=== PATIENT | female | born 1985 ===

== ENCOUNTER 2020-04-07 12:58 | Inpatient (IN) | payer SELFPAY ==
[2020-04-07 13:30] VITALS: BMI 34.9
--- NOTE | 2020-04-07 14:02 | PDOC.FPROB ---
FMR OB H&P: HPI - History of Present Illness Chief Complaint: Oligohydramnios Indentification: at 37.5 wks History of Present Illness: Pt is a 34 yo at 37.5 wks dated by 27.5 wk lisa, MUNIR 04/23/20, who was instructed to be seen after oligohydramnios was noted on an U/S performed by Dr. Duque. OB hx included A2GDM, AMA, food insecurity, Anemia of , Late to Care/Poor Dating. She was noted to have an RASHAAD < 5, deepest pocket < 2. She was also noted to have a SBP 140's at the clinic. She denies any complaints including JANG, vision changes, abdominal pain, chest pain, SOB, N/V, dysuria, hematuria, LOF, vaginal bleeding, vaginal discharge. She states her BG run 75- 120, she checks daily. Pt is noted to have poor follow up as well. She has hx of asthma. Her anatomy U/S by MFM revealed a hadlock of 36% on 02/24/20. RASHAAD on 03/31 was 9.26, reactive NST, noted anterior placenta. Primary Care Physician: EDGARD Kelly FMR OB H&P: Current - Care : 6 Para: [id number] Gestational age: 37w5d Due date: 04/23/20 Dating Criteria: 27.5w US - OB Labs Blood type: O RH: positive Antibody Screen: negative HIV: negative RPR: negative HepBsAg: negative Rubella: immune Urine drug screen: not done Gonorrhea: negative Chlamydia: negative Pap Smear: NILM, HPV neg 02/19/20 A1c: 6.0 GBS: negative H&H: 3T- 9.9/29.3 - Anatomy Survey Anatomy survey: Normal anatomic survey although limited view d/t late gestation and maternal body habitus FMR OB H&P: History - Past Medical History PMH: Asthma - OB History OB History: x4, no complications 1 spontaneous AB at 6wk - [employer] History [employer] History: Non-contributory - Surgical History Sx History: none - Social History Social History: denies tobacco, drug, alcohol use; states she has access to food at home - Family History Family History: non-contributory FMR OB H&P: Medications - Current Home Medications: Medication Instructions Recorded Confirmed Type RX: Albuterol Sulfate HFA (OR) 2 inhaler IH DAILY 04/07/20 04/07/20 History [Proventil Hfa (or)] RX: Montelukast Sodium [Singulair] 1 tablet PO DAILY 04/07/20 04/07/20 History RX: Vitamin 1 tablet PO DAILY 04/07/20 04/07/20 History RX: metFORMIN [Glucophage] 500 mg PO BID 04/07/20 04/07/20 History Allergies/Adverse Reactions: Allergies Allergy/AdvReac Type Severity Reaction Status Date / Time No Known Allergies Allergy Unverified 04/07/20 13:13 FMR OB H&P: ROS - Review of Systems General: denies: fever/chills, weight/appetite/sleep changes ENT: denies: nasal congestion, rhinorrhea, sinus pain/pressure Cardiovascular: reports: edema. denies: chest pain, palpitation Respiratory: denies: cough, congestion Gastrointestinal: denies: abdominal pain, indigestion, cramping, nausea, vomiting, diarrhea, constipation Genitourinary (Female): denies: incontinence, dysuria, hematuria Musculoskeletal: denies: pain, stiffness Neurologic: denies: numbness, syncope, weakness Integumentary: denies: itching, hair changes Endocrine: denies: cold intolerance, polydipsia Hematologic/Lymphatic: denies: prolonged or excessive bleeding Psychological: denies: depression, anxiety FMR OB H&P: Vital Signs - Maternal Vital signs: 125/61, p 70, 99% RA - Heart Tones Baseline: 140 Variability: moderate Acceleration: present Deceleration: absent [place] contractions every: none FMR OB H&P: Physical Exam - Physical Exam General: NAD, awake, alert and oriented HEENT: PERRLA, EOMI Neck: FROM, no JVD Heart: RRR, normal S1/S2, no edema General: CTAB, no respiratory distress, no wheezing Abdomen: soft, gravid, non-tender, bowel sound present Musculoskeletal: pulses present, FROM in all four extremities Neurological: cranial nerves II through XII intact, sensation to pain,touch and proprioception grossly normal Skin: no rash, capillary refill <2 seconds Lymphatic: no purpura, no petechia Psychiatric: intact recent and remote memory, good judgement and insight FMR OB H&P: A/P - Problem List (1) Gestational diabetes Current Visit: Yes Status: Acute Code(s): O24.419 - GESTATIONAL DIABETES MELLITUS IN , UNSP CONTROL (2) Asthma affecting in third trimester Current Visit: Yes Status: Acute Code(s): O99.513 - DISEASES OF THE RESP SYS COMP , THIRD TRIMESTER; J45.909 - UNSPECIFIED ASTHMA, UNCOMPLICATED (3) Intrauterine Current Visit: Yes Status: Acute Code(s): Z34.90 - ENCNTR FOR SUPRVSN OF NORMAL , UNSP, UNSP TRIMESTER (4) Anemia affecting in third trimester Current Visit: Yes Status: Acute Code(s): O99.013 - ANEMIA COMPLICATING , THIRD TRIMESTER (5) Late care Current Visit: Yes Status: Acute Code(s): O09.30 - SUPRVSN OF PREG W INSUFFICIENT ANTENAT CARE, UNSP TRIMESTER (6) AMA (advanced maternal age) multigravida 35+ Current Visit: Yes Status: Acute Code(s): O09.529 - SUPERVISION OF ELDERLY MULTIGRAVIDA, UNSPECIFIED TRIMESTER (7) Grand multiparity Current Visit: Yes Status: Acute Code(s): Z64.1 - PROBLEMS RELATED TO MULTIPARITY Disposition: Pt is a 34 yo at 37.5 wks dated by 27.5 wk lisa, MUNIR 04/23/20, who presents from clinic with oligohydramnios noted on U/S: # Term IUP, Grand Multiparity Due to pt's history of A2GDM, AMA, poor follow up, and most specifically oligohydramnios will admit pt for induction of labor. Pt is medically indicated for early term delivery due to oligohydramnios. She is late to care, suboptimally dated withU/S > 22wks placing pt's dates +/- 3 weeks. Even with dating recommendation for oligo is delivery > 34 wks. Benefits outweight risks. - type and cross 2 U # Oligohydramnios - pending EFW via U/S. If weight is > 4500 g will deliver via and if < 4500 g will begin with induction of labor. - Cervical check if advancing with induction of labor then will decide medication for induction # A2GDM - BG now - BG if > 120 notify physician team # AMA # Anemia of 9.9 Hgb on 03/31/20 - cbc pending - type and cross 2 U # Suboptimally dated # GBS Negative # PNC noted Food Insecurity at home - Case management on discharge # Asthma - no hemabate if pt has PPH. She does have multiple risk factors. Dispo: admit to floor for induction of labor vs Discussion: Date/Time: 04/07/20 1402 This H&P was discussed with Dr. Reed and Dr. Shafer who agree with the above documentation and plan.
[2020-04-07] MEDS ORDERED: Lidocaine 1% (PF) 30 ML VIAL SC PRN (14:21)
[2020-04-07] MEDS ORDERED: hydrALAZINE 20 MG/ML VIAL SLOW IVP PRN (14:21)
[2020-04-07] MEDS ORDERED: Ondansetron PF 4 MG/2 ML Vial IVP PRN (14:21)
[2020-04-07] MEDS ORDERED: Misoprostol 200 MCG TAB PR PRN (14:21)
[2020-04-07] MEDS ORDERED: Methylergonovine 0.2 MG/ML VIAL IM PRN (14:21)
[2020-04-07] MEDS ORDERED: HYDROcodone/Acetaminophen 5/325 mg Tablet PO PRN ×2 (14:21)
[2020-04-07] MEDS ORDERED: Carboprost 250 MCG/ML AMP IM PRN (14:21)
[2020-04-07] MEDS ORDERED: Acetaminophen 500 MG TAB PO PRN (14:21)
[2020-04-07] MEDS ORDERED: Ibuprofen 800 MG TAB PO PRN (14:21)
[2020-04-07] MEDS ORDERED: Promethazine HCl 25 MG/ML VIAL IM PRN (14:21)
[2020-04-07] MEDS ORDERED: NS / Oxytocin 40 units/1000ml 1,000 ML IV PRN (14:21)
[2020-04-07] MEDS: Lactated Ringer's 1,000 ML IV SCH ×2 (14:30→20:42)
[2020-04-07 14:45] LABS: Hemoglobin 10.7 g/dL (12.0-16.0); Mean Corpuscular HGB CONC 32.6 g/dL (32.0-36.0); Mean Corpuscular Hemoglobin 25.2 pg (27.0-31.0); Mean Corpuscular Volume 77.5 fL (78.0-98.0); Mean Platelet Volume 9.3 fL (7.4-10.4); Platelet Count 230 thou/uL (130-400); RBC Distribution Width 12.8 % (11.5-14.5); Red Blood Cell (RBC) Count 4.23 mill/uL (4.20-5.40)
[2020-04-07] MEDS ORDERED: Dextrose 50% Abboject 50 ML SYRINGE SLOW IVP PRN (14:49)
[2020-04-07] MEDS ORDERED: Dextrose 5% in Water 1,000 ML IV PRN (14:49)
[2020-04-07 15:10] LABS: #Eosinphils 0.1 thou/uL (0.0-0.7); #Lymphocytes 2.5 thou/uL (1.20-3.40); #Monocytes 0.3 thou/uL (0.11-0.59); #Neutrophils 3.4 thou/uL (1.40-6.50); %Basophils 0.1 % (0.0-1.0); %Eosinophils 1.2 % (0.0-10.0); %Lymphocytes 40.2 % (21.0-51.0); %Monocytes 4.7 % (0.0-10.0); %Neutrophils 53.7 % (42.0-75.0); Hemoglobin 10.7 g/dL (12.0-16.0); Mean Corpuscular HGB CONC 32.7 g/dL (32.0-36.0); Mean Corpuscular Hemoglobin 25.4 pg (27.0-31.0); Mean Corpuscular Volume 77.5 fL (78.0-98.0); Mean Platelet Volume 9.2 fL (7.4-10.4); Platelet Count 224 thou/uL (130-400); RBC Distribution Width 12.6 % (11.5-14.5); Red Blood Cell (RBC) Count 4.22 mill/uL (4.20-5.40); White Blood Cell (WBC) Count 6.3 thou/uL (4.8-10.8)
[2020-04-07 15:25] LABS: HBSAg Index 0.18 S/CO (0-0.99); Hep B Surf Ag Non-Reactive S/CO (NonReactive); Syphilis Antibody Nonreactive (Nonreactive); Syphilis Antibody Index 0.04 S/CO (<1.00 Non-Reactive)
--- NOTE | 2020-04-07 15:27 | HP ---
TIME OF EVALUATION: Roughly 1430, until 1445. LOCATION: [facility], bed 2. This is a patient of the clinic and this patient was first evaluated by Dr. Olayinka Knowles. I have evaluated the patient along with Dr. Knowles at bedside and have communicated our plan to the patient in [place]. REASON FOR EVALUATION: The patient was sent from the clinic after her antepartum surveillance test revealed a largest pocket less than 2 cm with a total RASHAAD of less than 5 cm. HISTORY OF PRESENT ILLNESS: This is a 34-year-old , G6, P4, SAB1 at the age of 15, who has had 4 previous deliveries, but the last delivery was in 2004 and that child was 9 pounds. There was no complications with that delivery by her report. She has a due date of April 23, placing her at 37 weeks and 5 days, although she presented late to care. She was sent by the clinic for possible induction/evaluation for amniotic fluid less than 2 cm as the largest pocket without a history of ruptured membranes. PAST MEDICAL HISTORY: Significant for asthma. She takes Singulair and albuterol MDI. PAST SURGICAL HISTORY: Includes her D and C with her miscarriage at age 15. ALLERGIES: NONE. SOCIAL HISTORY: Negative for alcohol, tobacco, or drug use. MEDICATIONS: Include metformin and vitamin. PHYSICAL EXAMINATION: VITAL SIGNS: Blood pressure is normal on arrival at 125/61, pulse is in the 80s and she is afebrile and respirations are 18 and not labored. GENERAL: She is in no acute distress. ABDOMEN: Soft and nontender. heart tones are in the 140s. They are reactive with moderate variability, acceleration and no deceleration. There are no contractions on tocodynamometer. INTERVENTIONS ORDERED: I have ordered an ultrasound due to her gestational diabetes history. I am making sure that the estimated weight is not above 4250 g before we proceed with induction of labor. ASSESSMENT: This is an advanced maternal age patient at 34 years of age, who is a G6, P4 with A2 diabetes and spotty care, who was diagnosed with oligohydramnios by largest pocket ultrasound. She was sent here for possible induction of labor. PLAN: 1. This is a suboptimally dated according to ACOG. Nonetheless, her oligohydramnios and A2 diabetes increases the morbidity making induction of labor medically necessary. I have opted to not give her steroids due to her A2 diabetes and she would be late anyway even if the 37.5 weeks is off. 2. Diabetes mellitus. Due to her previous history of macrosomia (9 pounds baby ) and her current diabetes status, I have elected to get an estimated weight to make sure that we are not inducing a potential macrosomic child. With her diabetes, the ACOG does recommend consideration of at 4250 g or 4500 g. I have discussed this with the patient. 3. If the ultrasound shows the baby in a cephalic presentation, which I was told that it was from the clinic, and the weight is appropriate, we may proceed with a trial of induction. 4. Plan discussed with Olayinka Knowles. Job ID: [id number] MTDD
--- NOTE | 2020-04-07 15:44 | ULT ---
EXAM: OB ultrasound COMPARISON: None HISTORY: Gestational diabetes, decreased amniotic fluid index noted at physician's clinic. TECHNIQUE: Multiplanar grayscale and color Doppler transabdominal sonographic images are obtained. FINDINGS: There is a single intrauterine gestation in cephalic presentation. Cardiac Doppler demonstr ates heart tones with a heart rate of 169 beats per minute. The placenta is located anterior and fundal without evidence of placenta previa. The amniotic fluid index is decreased with a n amniotic fluid index of 3.9 cm cervix is mostly obscured on this exam and not well evaluated. biometry measurements: BPD 9.27 cm -- 37 weeks 5 days HC 33.1 cm -- 37 weeks 5 days AC 31.76 cm -- 35 weeks 5 days FL 7.43 cm -- 38 weeks The estimated gestational age by ultrasound is 37 weeks 3 days with an MUNIR on04/25/2020. Gestational ag e by the last menstrual period is 37 weeks 5 days. The estimated weight by ultrasound is 3017 g (6 pounds, 10 ounces). This represents 35 percenti le for weight. This examination was not performed for evaluation of the anatomical structures. IMPRESSION: 1. Oligohydramnios with amniotic fluid index of 3.9 cm. 2. Single intrauterine gestation in cephalic presentation with heart tones documented. Estimat ed gestational age by ultrasound is 37 weeks 3 days. 3. Estimated weight is 3017 g (6 pounds, 10 ounces). 4. Dr. Knowles was present during this examination and is aware of the decreased amniotic fluid index /oligohydramnios.
--- NOTE | 2020-04-07 16:16 | PRG ---
DATE OF SERVICE: 04/07/2020 SONOGRAM: In brief, this is a patient of clinic, who was sent for suspected oligo at the clinic and she also has A2 diabetes. Her ultrasound was done and it shows that the weight is about 3000 g or about 3 kg and the baby is in a cephalic presentation. The largest pocket was around 2.5 cm or so, but the overall RASHAAD was about 4. But of note, is that the resident, who was in the room for the ultrasound reported back to me that the placenta was calcified and this is a concern. I have discussed these findings with the patient along with Dr. Knowles, who was at bedside. Our nurse was also in attendance for discussion. Although the largest pocket was normal, her A2 diabetes, advanced maternal age, and calcified placenta raise a concern for placental aging. As there was already a concern for a "low RASHAAD," I have discussed with her that the plan would still be an induction of labor, although her cervix is only fingertip , about 10% effaced, -3 station. I feel uncomfortable sending the patient home with these ultrasound findings and I would prefer to do a trial of induction for delivery. I have discussed with the patient that if the induction fails and/or the baby does not tolerate the process, she may require a , and she is aware of this possibility. Job ID: [id number] MTDD
--- NOTE | 2020-04-07 16:25 | PDOC.LDPN ---
Labor & Delivery Progress Note - Subjective Subjective: comfortable, no concerns - Objective Vital signs reviewed and normal: yes General: NAD, resting SVE: 1/0/-3 - Assessment (1) Gestational diabetes Code(s): O24.419 - GESTATIONAL DIABETES MELLITUS IN , UNSP CONTROL Current Visit: Yes Status: Acute (2) Asthma affecting in third trimester Code(s): O99.513 - DISEASES OF THE RESP SYS COMP , THIRD TRIMESTER; J45.909 - UNSPECIFIED ASTHMA, UNCOMPLICATED Current Visit: Yes Status: Acute (3) Intrauterine Code(s): Z34.90 - ENCNTR FOR SUPRVSN OF NORMAL , UNSP, UNSP TRIMESTER Current Visit: Yes Status: Acute (4) Anemia affecting in third trimester Code(s): O99.013 - ANEMIA COMPLICATING , THIRD TRIMESTER Current Visit: Yes Status: Acute (5) Late care Code(s): O09.30 - SUPRVSN OF PREG W INSUFFICIENT ANTENAT CARE, UNSP TRIMESTER Current Visit: Yes Status: Acute (6) AMA (advanced maternal age) multigravida 35+ Code(s): O09.529 - SUPERVISION OF ELDERLY MULTIGRAVIDA, UNSPECIFIED TRIMESTER Current Visit: Yes Status: Acute (7) Grand multiparity Code(s): Z64.1 - PROBLEMS RELATED TO MULTIPARITY Current Visit: Yes Status: Acute -: Pt is a complex, interesting pt. She is suboptimally dated at 37.5 wks. She was originally noted to have an RASHAAD < 5, deepest pocked < 2. But on repeat U/S she was noted to have a deepest pocket of 2.8, RASHAAD 3.9, and a placental grade 2. Although she does not have oligohydramnios based on her deepest pocket, she does have multiple concerning risks including a grade 2 placenta, A2GDM. She also a decrease in RASHAAD last week, ~9, to < 4 this week. It is uncertain if pt will continue to have reduced RASHAAD in the setting of A2GDM, grade 2 placenta or if pt could have a bad outcome from reduced fluid. The benefits of delivery outweigh the risk of a bad outcome with her presentation. Will keep for trial of labor. Pt on check is 1/thick/high. - start cytotec induction for trial of labor - feed pt before induction - continue with q2h glucose, space out if BG is WNL after the few couple of checks Olayinka Knowles,
[2020-04-07] MEDS ORDERED: Misoprostol 200 MCG TAB ONE (17:35)
--- NOTE | 2020-04-07 19:31 | PDOC.LDPN ---
Labor & Delivery Progress Note - Subjective Subjective: comfortable - Objective Vital signs reviewed and normal: yes General: NAD, resting Uterine fundus: non tender SVE: 18:00 by nurse Dilation: 1 Effacement: 50% Station: -3 FHT: category 1, variability present [place] contractions every: q3-5 - Assessment (1) AMA (advanced maternal age) multigravida 35+ Code(s): O09.529 - SUPERVISION OF ELDERLY MULTIGRAVIDA, UNSPECIFIED TRIMESTER Current Visit: Yes Status: Acute (2) Anemia affecting in third trimester Code(s): O99.013 - ANEMIA COMPLICATING , THIRD TRIMESTER Current Visit: Yes Status: Acute (3) Asthma affecting in third trimester Code(s): O99.513 - DISEASES OF THE RESP SYS COMP , THIRD TRIMESTER; J45.909 - UNSPECIFIED ASTHMA, UNCOMPLICATED Current Visit: Yes Status: Acute (4) Gestational diabetes Code(s): O24.419 - GESTATIONAL DIABETES MELLITUS IN , UNSP CONTROL Current Visit: Yes Status: Acute (5) Grand multiparity Code(s): Z64.1 - PROBLEMS RELATED TO MULTIPARITY Current Visit: Yes Status: Acute (6) Intrauterine Code(s): Z34.90 - ENCNTR FOR SUPRVSN OF NORMAL , UNSP, UNSP TRIMESTER Current Visit: Yes Status: Acute (7) Late care Code(s): O09.30 - SUPRVSN OF PREG W INSUFFICIENT ANTENAT CARE, UNSP TRIMESTER Current Visit: Yes Status: Acute Plan: continue plan of care -: Patient fingertip/50/high at appx 18:00 at which time cytotec was placed. Strip reviewed at 19:30 and category I. Contractions q2-5 minutes. Will recheck in [address] additional cytotec if necessary at that time. BG on presentation 81. She ate approximately 2 hours ago. Will recheck BG in 1 hour. If BG <120 q2h for first several BG checks, then will space out to q4h. Patient' s BP's have been very well controlled in low 100's systolic. Patient doing well.
--- NOTE | 2020-04-07 21:41 | PDOC.LDPN ---
Labor & Delivery Progress Note - Subjective Subjective: comfortable, vaginal pressure - Objective Abnormal vital signs: One BP 143/81 General: NAD, resting SVE: 0.5/thick/high FHT: category 1 [place] contractions every: 2-4 Plan: continue plan of care, labor augmentation -: Patient is a 34F @ 37.5wga by 27wk sono that is having an IOL for low RASHAAD Patient doing well, resting comfortably. She is feeling some pressure, but not really feeling contractions. Patient has had BG 81,86. If next few BG q2h are <120, can space accuchecks to q4h Patient had one BP of 143/81 and 2 in clinic, so will get pre-e labs at this time. SVE 0.5/thick/high @ 2135, ctx q2-4, cat 1 strip. Second cytotec placed. Will follow pre-e labs, continue to monitor bp, and continue q3-4hr cervical checks.
[2020-04-07] MEDS: Misoprostol 100 MCG TAB VAG SCH (21:50)
[2020-04-07 22:50] LABS: ALT (SGPT) 8 U/L (8-55); AST (SGOT) 13 U/L (5-34); Albumin 3.2 g/dL (3.5-5.0); Alkaline Phosphatase 212 U/L (40-110); Anion Gap 13 mmol/L (10-20); BUN (Urea Nitrogen) 7 mg/dL (7.0-18.7); Bilirubin, Total 0.4 mg/dL (0.2-1.2); Calc. Creatinine Clearance 175 mL/min (70-130); Calcium 8.3 mg/dL (7.8-10.44); Carbon Dioxide 21 mmol/L (22-29); Chloride 106 mmol/L (98-107); Estimated GFR-MDRD Greater than 90; Globulin 3.4 g/dL (2.4-3.5); Glucose 77 mg/dL (70-105); Potassium 3.9 mmol/L (3.5-5.1); Protein, Total 6.6 g/dL (6.0-8.3); Sodium 136 mmol/L (136-145)
--- NOTE | 2020-04-07 22:51 | PDOC.EVN ---
Event Note - Event Note Event Note: Reviewed POC with Dr Orellana just now. IOL indication reviewed as Oligo and A2DM, 37 weeks. One BP elevation noted...labs ordered. Cytotec in use
[2020-04-07 22:53] LABS: Creatinine, Urine 54.25 mg/dL (47-110)
[2020-04-08 00:22] LABS: Protein, Urine Random Quant Less than 10 mg/dL (1-14)
--- NOTE | 2020-04-08 00:45 | PDOC.LDPN ---
Labor & Delivery Progress Note - Subjective Subjective: comfortable - Objective Abnormal vital signs: One BP 146/64 since last check, no severe range pressures General: NAD, resting SVE: 350/-3 FHT: category 1, variability present [place] contractions every: 2-4 Plan: continue plan of care, labor augmentation -: Patient is a 34F @ 37.6wga by 27wk sono that is having an IOL for low RASHAAD Patient doing well, resting comfortably. She is feeling some pressure, small amount of pain with contractions, tolerable. Patient has had BG 81,86, 79. Will space accuchecks to q4h Patient had one BP of 146/64 since last check; pre-e labs negative at this time. Will continue to monitor BP. SVE /-3 @ 0050, ctx q2-4, cat 1 strip. Will score of 4. Third cytotec to be placed. Will continue to monitor bp, continue q4h accuchecks, and continue q3-4hr cervical checks.
[2020-04-08] MEDS ORDERED: NS w/ Oxytocin 10 units 500 ML IV SCH (01:15)
--- NOTE | 2020-04-08 01:15 | PDOC.BPN ---
- Brief Progress Note Patient with likely SROM at 1:15 AM. Will start pitocin for continued augmentation. Will recheck in 3-4 hours. Michelle Orellana, DO PGY-3
--- NOTE | 2020-04-08 03:59 | PDOC.LDPN ---
Labor & Delivery Progress Note - Subjective Subjective: comfortable - Objective Abnormal vital signs: 4 BP with systolic >140 General: NAD, resting Uterine fundus: non tender SVE: 3/50/-3 FHT: category 1 [place] contractions every: 2-4 Plan: continue plan of care, pitocin for augmentation -: Patient is a 34F @ 37.6wga by 27wk sono that is having an IOL for low RASHAAD Patient doing well, resting comfortably. She continues to feel some pressure, small amount of pain with contractions, tolerable. Patient has had BG 81,86, 79. Accuchecks to q4h Patient had 4 BP with systolic >140 since last check; pre-e labs negative at this time, no severe range pressures. Will continue to monitor BP. Patient likely has gHTN. SVE 3/50/-3 @ 0050, ctx q2-4, cat 1 strip. Will score of 4. SROM shortly after check, so pitocin was started instead of cytotec. SVE 3/50/-3 @ 0350, ctx q2-4, cat 1 strip. Pitocin at 8. Will continue to monitor bp, continue q4h accuchecks, and continue q3-4hr cervical checks. OBGYN: Case and progressed reviewed. Agree with plan.
--- NOTE | 2020-04-08 05:21 | PDOC.EVN ---
Event Note - Event Note Event Note: OBGERALDINEN: Patent now 3cm and s/p SROM. Pitocin in use. Continue course.
--- NOTE | 2020-04-08 06:59 | PDOC.BPN ---
- Brief Progress Note Notified by nursing staff that patient had half dollar size clot. Went to evaluate and clot visualized in bed. Patient with painful contractions q2 min. Category I strip. SVE /-3, bag did feel intact (this was my first time checking patient). No distress. No significant bleeding noted during cervical exam. Will stay the course and continue with labor augmentation. Monitor closely. Dr. Shafer and incoming team notified. Of note, one elevated BP in severe range during cervical exam. Repeated immediately after exam and not in severe range. Will need to monitor closely.
--- NOTE | 2020-04-08 09:25 | PDOC.LDPN ---
Labor & Delivery Progress Note - Subjective Subjective: painful contractions - Objective Vital signs reviewed and normal: yes General: breathing through contractions SVE: 6/100/0 FHT: category 2, early decelerations, variability present [place] contractions every: q2-3 - Assessment (1) Gestational diabetes Code(s): O24.419 - GESTATIONAL DIABETES MELLITUS IN , UNSP CONTROL Current Visit: Yes Status: Acute (2) Asthma affecting in third trimester Code(s): O99.513 - DISEASES OF THE RESP SYS COMP , THIRD TRIMESTER; J45.909 - UNSPECIFIED ASTHMA, UNCOMPLICATED Current Visit: Yes Status: Acute (3) Intrauterine Code(s): Z34.90 - ENCNTR FOR SUPRVSN OF NORMAL , UNSP, UNSP TRIMESTER Current Visit: Yes Status: Acute (4) Anemia affecting in third trimester Code(s): O99.013 - ANEMIA COMPLICATING , THIRD TRIMESTER Current Visit: Yes Status: Acute (5) Late care Code(s): O09.30 - SUPRVSN OF PREG W INSUFFICIENT ANTENAT CARE, UNSP TRIMESTER Current Visit: Yes Status: Acute (6) AMA (advanced maternal age) multigravida 35+ Code(s): O09.529 - SUPERVISION OF ELDERLY MULTIGRAVIDA, UNSPECIFIED TRIMESTER Current Visit: Yes Status: Acute (7) Grand multiparity Code(s): Z64.1 - PROBLEMS RELATED TO MULTIPARITY Current Visit: Yes Status: Acute Plan: continue plan of care -: # IUP, grand multiparity - continue current plan with pitocin. Will likely deliver soon - Dr. Kelly updated -will assess for PPH, will not use hemabate/methergine; will consider balloon and TXA # AMA # gHTN - no severe pressures, pre-e labs negative # Asthma - will not use hemabate if PPH Dispo: continue pitocin, recheck at 1030
[2020-04-08] MEDS ORDERED: Fentanyl 4 mcg/Bup 0.1% Cadd 100 ML ONE (10:33)
[2020-04-08] MEDS: Lactated Ringer's 1,000 ML IV SCH ×2 (10:40→13:46)
--- NOTE | 2020-04-08 10:55 | PDOC.LDPN ---
Labor & Delivery Progress Note - Subjective Subjective: painful contractions, vaginal pressure - Objective Vital signs reviewed and normal: yes SVE: 1 FHT: category 1, variability present - Assessment (1) Gestational diabetes Code(s): O24.419 - GESTATIONAL DIABETES MELLITUS IN , UNSP CONTROL Current Visit: Yes Status: Acute (2) Asthma affecting in third trimester Code(s): O99.513 - DISEASES OF THE RESP SYS COMP , THIRD TRIMESTER; J45.909 - UNSPECIFIED ASTHMA, UNCOMPLICATED Current Visit: Yes Status: Acute (3) Intrauterine Code(s): Z34.90 - ENCNTR FOR SUPRVSN OF NORMAL , UNSP, UNSP TRIMESTER Current Visit: Yes Status: Acute (4) Anemia affecting in third trimester Code(s): O99.013 - ANEMIA COMPLICATING , THIRD TRIMESTER Current Visit: Yes Status: Acute (5) Late care Code(s): O09.30 - SUPRVSN OF PREG W INSUFFICIENT ANTENAT CARE, UNSP TRIMESTER Current Visit: Yes Status: Acute (6) AMA (advanced maternal age) multigravida 35+ Code(s): O09.529 - SUPERVISION OF ELDERLY MULTIGRAVIDA, UNSPECIFIED TRIMESTER Current Visit: Yes Status: Acute (7) Grand multiparity Code(s): Z64.1 - PROBLEMS RELATED TO MULTIPARITY Current Visit: Yes Status: Acute Plan: continue plan of care -: Pt is progressing well. She has painful contractions. She would like epidural but she might deliver before it is able to be placed. 8/100/0. Continue current care. She had one elevated SBP 160 and return to 140's/150's. Will continue to monitor. Olayinka Knowles DO
[2020-04-08] MEDS ORDERED: NS / Oxytocin 40 units/1000ml 1,000 ML ONE (11:01)
[2020-04-08] MEDS ORDERED: Lidocaine 1% (PF) 30 ML VIAL ONE (11:01)
[2020-04-08] MEDS ORDERED: Misoprostol 200 MCG TAB ONE (11:15)
[2020-04-08] MEDS ORDERED: Methylergonovine 0.2 MG/ML VIAL ONE (11:15)
[2020-04-08] MEDS ORDERED: Naloxone HCl 0.4 mg/ml Vial IVP PRN ×2 (11:49)
[2020-04-08] MEDS ORDERED: Lactated Ringer's 500 ML IV PRN (11:49)
[2020-04-08] MEDS ORDERED: Ondansetron PF 4 MG/2 ML Vial IVP PRN ×2 (11:49→20:28)
[2020-04-08] MEDS ORDERED: EPHEDRINE 25 MG/5 ML SYRINGE SLOW IVP PRN (11:49)
[2020-04-08] MEDS ORDERED: Promethazine HCl 25 MG/ML VIAL IM PRN (11:49)
[2020-04-08] MEDS ORDERED: diphenhydrAMINE 50 MG/ML VIAL IVP PRN (11:49)
[2020-04-08] MEDS ORDERED: Fentanyl 4 mcg/Bupivacaine 0.1% Cassette 100 ML EPIDURAL SCH (12:00)
[2020-04-08] MEDS ORDERED: Communication Order-Pharmacy FS SCH (12:00)
--- NOTE | 2020-04-08 15:19 | PDOC.LDPN ---
Labor & Delivery Progress Note - Subjective Subjective: comfortable, no concerns - Objective Vital signs reviewed and normal: yes Abnormal vital signs: SBP 140's-150's General: NAD Uterine fundus: non tender SVE: 9.5/100/1 FHT: category 1, variability present [place] contractions every: q4-5mins - Assessment (1) Gestational diabetes Code(s): O24.419 - GESTATIONAL DIABETES MELLITUS IN , UNSP CONTROL Current Visit: Yes Status: Acute (2) Asthma affecting in third trimester Code(s): O99.513 - DISEASES OF THE RESP SYS COMP , THIRD TRIMESTER; J45.909 - UNSPECIFIED ASTHMA, UNCOMPLICATED Current Visit: Yes Status: Acute (3) Intrauterine Code(s): Z34.90 - ENCNTR FOR SUPRVSN OF NORMAL , UNSP, UNSP TRIMESTER Current Visit: Yes Status: Acute (4) Anemia affecting in third trimester Code(s): O99.013 - ANEMIA COMPLICATING , THIRD TRIMESTER Current Visit: Yes Status: Acute (5) Late care Code(s): O09.30 - SUPRVSN OF PREG W INSUFFICIENT ANTENAT CARE, UNSP TRIMESTER Current Visit: Yes Status: Acute (6) AMA (advanced maternal age) multigravida 35+ Code(s): O09.529 - SUPERVISION OF ELDERLY MULTIGRAVIDA, UNSPECIFIED TRIMESTER Current Visit: Yes Status: Acute (7) Grand multiparity Code(s): Z64.1 - PROBLEMS RELATED TO MULTIPARITY Current Visit: Yes Status: Acute Plan: continue plan of care -: Pt is currently making good progression with positional changes, pitocin. Her BP 's are elevated but does not have severe range. She did have 1 but cuff was not properly placed - recheck was < 160. She is tolerating contractions well with epidural in place. Will continue current regimen and hopeful for delivery soon. Olayinka Knowles,
[2020-04-08] MEDS ORDERED: Calcium Carbonate 500 MG ChewTAB PO PRN (16:59)
--- NOTE | 2020-04-08 17:44 | PDOC.LDPN ---
Labor & Delivery Progress Note - Subjective Subjective: comfortable, no concerns - Objective Vital signs reviewed and normal: yes General: NAD SVE: 9100/+1 FHT: category 1 - Assessment (1) Gestational diabetes Code(s): O24.419 - GESTATIONAL DIABETES MELLITUS IN , UNSP CONTROL Current Visit: Yes Status: Acute (2) Asthma affecting in third trimester Code(s): O99.513 - DISEASES OF THE RESP SYS COMP , THIRD TRIMESTER; J45.909 - UNSPECIFIED ASTHMA, UNCOMPLICATED Current Visit: Yes Status: Acute (3) Intrauterine Code(s): Z34.90 - ENCNTR FOR SUPRVSN OF NORMAL , UNSP, UNSP TRIMESTER Current Visit: Yes Status: Acute (4) Anemia affecting in third trimester Code(s): O99.013 - ANEMIA COMPLICATING , THIRD TRIMESTER Current Visit: Yes Status: Acute (5) Late care Code(s): O09.30 - SUPRVSN OF PREG W INSUFFICIENT ANTENAT CARE, UNSP TRIMESTER Current Visit: Yes Status: Acute (6) AMA (advanced maternal age) multigravida 35+ Code(s): O09.529 - SUPERVISION OF ELDERLY MULTIGRAVIDA, UNSPECIFIED TRIMESTER Current Visit: Yes Status: Acute (7) Grand multiparity Code(s): Z64.1 - PROBLEMS RELATED TO MULTIPARITY Current Visit: Yes Status: Acute -: Dr. Palmer checked pt and she is still at 9 with cervix felt circumferential. At this time will give pitocin rest and give tums. Pt is comfortable with epidural.
[2020-04-08] MEDS ORDERED: Tranexamic Acid 1,000 MG/10 ML VIAL ONE (18:56)
[2020-04-08 19:54] LABS: Actual Bicarbonate (HCO3a) 21.7 mEq/L (22-28); Base Excess (BEa) -7.8 mEq/L (-2.0 to +3.0)
--- NOTE | 2020-04-08 20:25 | PDOC.OPDEL ---
OB Operative/Delivery Note - Additional Findings/Plan Compilations/Other Findings: Delivering Physician: Dr. Brandy Baptiste, Dr. Elvira Kelly Attending: Dr. Palmer Procedure: Spontaneous Vaginal Delivery Anesthesia: epidural QBL: 310 ml Pre-op Diagnosis: 1. Term intrauterine by 27wk sono 2. late to care 3. gHTN 4. AMA 5. A2GDM 6. Oligohydramnios 7. Grade 2 placenta 8. Asthma Post-op Diagnosis: 1. Term intrauterine , delivered 2-8. same as above Indications: A 34y/o female presents to L&D for medical induction due to oligohydramnios diagnosed in clinic Delivery Note: This is 34yo F @ 37.6wks who delivered a viable M infant at 1923. The patient was originally sent over from clinic due to oligohydramnios, with an RASHAAD appreciated in clinic of <5 and DVP <2. It was decided at that time to proceed with mIOL for oligohydramnios. Her intrapartum course was notable for multiple elevated blood pressures, with subsequent diagnosis of gHTN. She had 5 severes that both occurred when the blood pressure cuff was misplaced. She had immediate repeat BP that demonstrated improved BP. She had labs for a work-up for pre-e, which were negative. Her A2GDM was well controlled. Her blood sugars were routinely monitored were consistently <95. A vigorous male was delivered over an intact perineum in the occipitoanterior position. Anterior Shoulder and then remainder of the body delivered. Tight nuchal cord x2. The head was held down and mouth and nares were bulb suctioned. Cord clamped immediately and cut and cord blood and cord gas collected. Placenta delivered intact in the Art presentation with a 3 vessel cord noted. Fundal massage was performed and the fundus was firm. The cervix and vagina were inspected and found to be free of lacerations. required blow- by and cpap, delee of 9ml. Bedside Castro score estimated the closer to 35wga. Infant went to NICU for increased monitoring and respiratory support. Apgars were 5/8 at 1 & 5 minutes, respectively. Patient tolerated delivery well and went to after routine recovery/care. Addendum - Attending - Attending Attestation Date/Time: 04/09/20 4704 I was present for the entire delivery.
[2020-04-08] MEDS: Acetaminophen 325 MG TAB PO PRN (20:27)
[2020-04-08] MEDS ORDERED: Milk Of Magnesia 30 ML UDCUP PO PRN ×2 (20:28)
[2020-04-08] MEDS ORDERED: NS / Oxytocin 40 units/1000ml 1,000 ML IV SCH (20:28)
[2020-04-08] MEDS ORDERED: Misoprostol 200 MCG TAB VAG ONE (20:28)
[2020-04-08] MEDS ORDERED: Bisacodyl 10 MG SUPP PR PRN (20:28)
[2020-04-08] MEDS ORDERED: Lanolin Ointment 7 GM TUBE TOP PRN (20:28)
[2020-04-08] MEDS ORDERED: hydrALAZINE 20 MG/ML VIAL SLOW IVP PRN (20:28)
[2020-04-08] MEDS ORDERED: Adacel (T-DAP) 0.5 ML SYRINGE IM ONE (20:28)
[2020-04-08] MEDS: Docusate 100 MG CAP PO SCH (22:56)
[2020-04-08] MEDS: Misoprostol 100 MCG TAB VAG SCH ×2 (22:56→22:57)
[2020-04-08] MEDS: Ibuprofen 800 MG TAB PO SCH (23:37)
[2020-04-08] MEDS: Docusate Calcium (SURFAK) 240 MG CAP PO SCH (23:38)
[2020-04-09] MEDS: Ibuprofen 800 MG TAB PO SCH ×3 (05:29→22:08)
--- NOTE | 2020-04-09 06:44 | PDOC.PP ---
Post Progress Note Post Day #: 1 Subjective: Pt is doing well today w/o complaints. She is ambulating, managed to use restroom on her own. She has no concerns. Her vital signs were stable overnight. She denies JANG, vision changes, chest pain, sob, oliguria, worsening swelling. PO intake tolerated: yes Flatus: yes Ambulation: yes Vital Signs (12 hours) Temp Pulse Resp BP Pulse Ox 04/09/20 04:34 98.4 F 85 16 106/61 99 04/08/20 23:40 99.0 F 92 16 114/59 L 97 04/08/20 22:20 99.2 F 95 18 110/53 L 95 Weight Weight 81.193 kg - Physical Examination General: NAD Cardiovascular: RRR Respiratory: clear to auscultation bilaterally Abdominal: + bowel sounds, lochia, appropriately TTP Neurological: no gross focal deficits Psychiatric: A&Ox3, normal affect Result Diagrams: 04/07/20 14:58 04/07/20 22:23 Additional Labs: Post Labs Blood Type O POSITIVE 04/07/20 14:58 Hep Bs Antigen Non-Reactive S/CO (NonReactive) 04/07/20 14:36 (1) Gestational diabetes Code(s): O24.419 - GESTATIONAL DIABETES MELLITUS IN , UNSP CONTROL Status: Acute (2) Asthma affecting in third trimester Code(s): O99.513 - DISEASES OF THE RESP SYS COMP , THIRD TRIMESTER; J45.909 - UNSPECIFIED ASTHMA, UNCOMPLICATED Status: Acute (3) Intrauterine Code(s): Z34.90 - ENCNTR FOR SUPRVSN OF NORMAL , UNSP, UNSP TRIMESTER Status: Acute (4) Anemia affecting in third trimester Code(s): O99.013 - ANEMIA COMPLICATING , THIRD TRIMESTER Status: Acute (5) Late care Code(s): O09.30 - SUPRVSN OF PREG W INSUFFICIENT ANTENAT CARE, UNSP TRIMESTER Status: Acute (6) AMA (advanced maternal age) multigravida 35+ Code(s): O09.529 - SUPERVISION OF ELDERLY MULTIGRAVIDA, UNSPECIFIED TRIMESTER Status: Acute (7) Grand multiparity Code(s): Z64.1 - PROBLEMS RELATED TO MULTIPARITY Status: Acute - Assessment/Plan Pt is a 34 yo G6 now P5015 who delivered at 37.6 wks by : # Term Delivery complicated by AMA, late to care, GDM, and gHTN - BP WNL, no signs of pre-e - BG well controlled, diabetic diet ordered - no significant bleeding - continue ambulation, tolerating a diet, no BM # in NICU Secondary to pneumothorax as evidence on CXR. Crucible required blow-by and CPAP. Follow up: 2 weeks, TAMP in 6 wks Dispo: Will continue to monitor for another day. in NICU at the time.
[2020-04-09] MEDS: Polyethylene Glycol 3350 17 GM Packet PO SCH (08:28)
[2020-04-09] MEDS: Docusate 100 MG CAP PO SCH ×2 (08:28→22:06)
[2020-04-09] MEDS: Ferrous Sulfate 325 MG TAB PO SCH ×2 (08:28→15:59)
[2020-04-09] MEDS: Docusate Calcium (SURFAK) 240 MG CAP PO SCH ×2 (08:28→22:08)
[2020-04-09] MEDS: Prenatal Vitamin 1 TAB PO SCH (08:28)
[2020-04-09] MEDS: Acetaminophen 325 MG TAB PO PRN (17:50)
[2020-04-10] MEDS: Ibuprofen 800 MG TAB PO SCH (05:30)
--- NOTE | 2020-04-10 07:03 | PDOC.PP ---
Post Progress Note Post Day #: 2 Subjective: Pt is doing well today. She has no complaints. She is tolerating PO intake. She has had a BM, passing flatus. She has minimal bleeding. She denies N/V, JANG, vision changes, chest pain, SOB, RUQ pain, worsening swelling. Her is ready for d/c per NICU team. PO intake tolerated: yes Flatus: yes Ambulation: yes Vital Signs (12 hours) Temp Pulse Resp BP Pulse Ox 04/09/20 20:46 99.0 F 80 16 112/71 99 Weight Weight 81.193 kg - Physical Examination General: NAD Cardiovascular: no m/r/g, RRR Respiratory: clear to auscultation bilaterally Abdominal: + bowel sounds, appropriately TTP Neurological: no gross focal deficits Psychiatric: A&Ox3, normal affect Result Diagrams: 04/07/20 14:58 04/07/20 22:23 Additional Labs: Post Labs Blood Type O POSITIVE 04/07/20 14:58 Hep Bs Antigen Non-Reactive S/CO (NonReactive) 04/07/20 14:36 (1) Gestational diabetes Code(s): O24.419 - GESTATIONAL DIABETES MELLITUS IN , UNSP CONTROL Status: Acute (2) Asthma affecting in third trimester Code(s): O99.513 - DISEASES OF THE RESP SYS COMP , THIRD TRIMESTER; J45.909 - UNSPECIFIED ASTHMA, UNCOMPLICATED Status: Acute (3) Intrauterine Code(s): Z34.90 - ENCNTR FOR SUPRVSN OF NORMAL , UNSP, UNSP TRIMESTER Status: Acute (4) Anemia affecting in third trimester Code(s): O99.013 - ANEMIA COMPLICATING , THIRD TRIMESTER Status: Acute (5) Late care Code(s): O09.30 - SUPRVSN OF PREG W INSUFFICIENT ANTENAT CARE, UNSP TRIMESTER Status: Acute (6) AMA (advanced maternal age) multigravida 35+ Code(s): O09.529 - SUPERVISION OF ELDERLY MULTIGRAVIDA, UNSPECIFIED TRIMESTER Status: Acute (7) Grand multiparity Code(s): Z64.1 - PROBLEMS RELATED TO MULTIPARITY Status: Acute - Assessment/Plan Pt is a 34 yo G6 now P5015 who delivered at 37.6 wks by : # Term Delivery complicated by AMA, late to care, GDM, and gHTN - BP WNL, no signs of pre-e - diabetic diet ordered - no significant bleeding - continue ambulation, tolerating a diet - pt prefers OCP's for PP contraception # Mc[place]osh in NICU Resolved pneumothorax. NICU will discharge today. Follow up: [address] [facility] Dispo: discharge today to home
[2020-04-10] MEDS: Ferrous Sulfate 325 MG TAB PO SCH (08:40)
[2020-04-10] MEDS: Docusate Calcium (SURFAK) 240 MG CAP PO SCH (08:41)
[2020-04-10] MEDS: Polyethylene Glycol 3350 17 GM Packet PO SCH (08:41)
[2020-04-10] MEDS: Prenatal Vitamin 1 TAB PO SCH (08:41)
[2020-04-10] MEDS: Docusate 100 MG CAP PO SCH (08:41)
[2020-04-10 12:57] VITALS: BP 127/63; TEMP 98.8
== END 2020-04-10 13:16 | disposition home or self-care (01) | DRG 807 ==
LOC: L&D/OP 12:58 → L&D 14:28 → 3SW 04-08 22:46
PROVIDERS: ADMIT Obstetrics & Gynecology; ATTEND Obstetrics & Gynecology
PROC: 3E033VJ Introduction of Other Hormone into Peripheral Vein, Percutaneous Approach (ICD-10-PCS; 2020-04-07)
PROC: 10E0XZZ Delivery of Products of Conception, External Approach (ICD-10-PCS; principal; 2020-04-09)
DX: O41.03X0 Oligohydramnios, third trimester, not applicable or unspecified (principal); Z37.0 Single live birth; Z3A.37 37 weeks gestation of pregnancy; O99.52 Diseases of the respiratory system complicating childbirth; J45.909 Unspecified asthma, uncomplicated; O99.02 Anemia complicating childbirth; D64.9 Anemia, unspecified; O13.4 Gestational [pregnancy-induced] hypertension without significant proteinuria, complicating childbirth; O24.425 Gestational diabetes mellitus in childbirth, controlled by oral hypoglycemic drugs; Z79.899 Other long term (current) drug therapy
CPT/HCPCS: 36415; 36416; 76815; 80053; 82570; 82805; 84156; 85027; 86780; 86850; 86900; 86901; 87340; 99285; J2001; J2210; J2590